=== PATIENT | male | born 1995 ===

== ENCOUNTER 2016-11-14 08:53 | Emergency (ER) | payer BC ==
[2016-11-14] MEDS: NS 0.9% 1000 ML* 3,000 ML IV ONE ×3 (09:10→11:43)
[2016-11-14 10:46] LABS: Hematocrit 42 % (42-52); Hemoglobin 13.8 g/dl (14.0-18.0); Mean Corpuscular HGB Conc 33 g/dl (31-36); Mean Corpuscular Hemoglobin 31 pg (27-31); Mean Corpuscular Volume 95 fL (80-94); Mean Platelet Volume 9 um3 (7.4-10.4); Red Blood Count 4.41 10^6/ul (4.0-5.4); Red Cell Distribution Width 13 % (10.5-15)
[2016-11-14 10:59] LABS: Albumin 4.3 g/dL (3.2-5.2); BUN/Creatinine Ratio 32.6 (8-20); Calcium 9.5 mg/dL (8.6-10.3); EGFR African American 86.4 (>60); EGFR Non-African American 67.2 (>60); Globulin 2.2 g/dL (2-4); Potassium 3.8 mmol/L (3.5-5.0); Total Bilirubin 0.7 mg/dL (0.2-1.0); Total Protein 6.5 g/dL (6.4-8.9)
[2016-11-14 11:02] LABS: Troponin I 0.02 ng/mL (<0.04)
--- NOTE | 2016-11-14 11:09 | RAD ---
INDICATION: Chest pain COMPARISON: None TECHNIQUE: An AP portable view obtained at 1100 hours is submitted. FINDINGS: Bones/Soft Tissues: There are no acute bony findings. Cardiomediastinal: The cardiomediastinal silhouette is normal. Lungs: There are no infiltrates. Pleura: There are no pleural effusions. Other: None IMPRESSION: NORMAL CHEST.
[2016-11-14 13:04] VITALS: BP 104/54
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
== END 2016-11-14 13:11 | disposition home or self-care (01) ==
LOC: ED 08:53
DX: R42 Dizziness and giddiness (principal); E86.0 Dehydration
CPT/HCPCS: 36415; 71010; 80053; 82272; 82550; 82553; 83605; 83874; 83880; 84484; 85025; 85610; 85730; 93005; 96360; 99283